=== PATIENT | female | born 1950 | race Caucasian/White ===

== ENCOUNTER 2024-06-01 08:37 | Outpatient (OUT) | payer MEDICARE, SELFPAY ==
--- NOTE | 2024-06-01 08:41 | XR_ITS ---
[address] [address] Patient Name: ELLA NIXON MRN: [id number] date: 1950 Sex: F Assigned Patient Location: [facility] Current Patient Location: [facility] Accession/Order Number: [id number] Exam Date: 06/01/2024 09:00 Report Date: 06/01/2024 10:19 At the request of: ANUPAMA VILLA Procedure: XR DEXA axial skeleton EXAMINATION: XR DEXA axial skeleton HISTORY: Primary Ovarian Failure E28.39 COMPARISON: DEXA bone densitometry 04/01/2022 TECHNIQUE: Dual-energy X-ray absorptiometry (DXA) was performed. FINDINGS: SPINE ANALYSIS: Average bone mineral density is 1.215 g/cm2. T-score (standard deviation relative to young adult mean): 0.4 . -1.0% change since prior study. HIP ANALYSIS: Lowest bone mineral density is within the left femoral neck, 0.697 g/cm2. T-score (standard deviation relative to young adult mean): -2.5 . XR/XR DEXA axial skeleton IMPRESSION: World Health Organization Classification: Osteopenia - Moderate Fracture Risk FRAX: Cannot calculate. Pharmacologic treatment recommendations * No uniform recommendation applies to all patients. Management plans must be individualized. * Consider initiating pharmacologic treatment in postmenopausal women and men >= 50 years of age who have the following: Primary fracture prevention: * T-score <= - 2.5 at the femoral neck, total hip, lumbar spine, 33% radius (some uncertainty with existing data) by DXA. * Low bone mass (osteopenia: T-score between - 1.0 and - 2.5) at the femoral neck or total hip by DXA with a 10-year hip fracture risk >= 3% or a 10-year major osteoporosis-related fracture risk >= 20% (i.e., clinical vertebral, hip, forearm, or proximal humerus) based on the [place]-adapted FRAXregistered model. Secondary fracture prevention: * Fracture of the hip or vertebra regardless of BMD [4, 5]. * Fracture of proximal humerus, pelvis, or distal forearm in persons with low bone mass (osteopenia: T-score between - 1.0 and - 2.5). The decision to treat should be individualized in persons with a fracture of the proximal humerus, pelvis, or distal forearm who do not have osteopenia or low BMD [12, 13]. Sadiq MS, Esperanza SL, Gaye KL, Harriet EM, Monico KG, AJ, Slime ES. The clinician's guide to prevention and treatment of osteoporosis. Osteoporos Int. 2021;33(10):3513-6129. doi: 10.1007/z83271-465-63509-p. Epub 2021Mar 07. Erratum in: Osteoporos Int. 2021Jun 06;: PMID: [id number]; PMCID: [id number]. Electronically authenticated by: CLAIRE ACEVEDO Date: 06/01/2024 10:19
--- NOTE | 2024-06-01 08:41 | MM_ITS ---
Patient Name: ELLA NIXON MR#: [id number] : 1950 Exam Date: 06/01/2024 Ordering Doctor: DR ANUPAMA VILLA M.D. RADIOLOGY REPORT PROCEDURE: MM TOMOSYNTHESIS SCREENING BI COMPARISON: MG MAMM SCREEN 3D KILEY CAD, 04/01/2022. MG MAMM SCREEN KILEY W CAD, 12/09/2019. MG MAMM SCREEN KILEY W CAD, 05/28/2017. MG MAMM KILEY SCRN W CAD DIG, 03/03/2014. INDICATIONS: Screening Calculator Name NCI Breast Cancer Risk Assessment Tool 5 Year Breast Cancer Risk 3.30% Lifetime Breast Cancer Risk 7.00% Personal Breast Cancer No Personal Ovarian Cancer No Treatments None Family Cancers Sister with breast cancer at age 61. LOCATION: [facility] BREAST COMPOSITION: There are scattered areas of fibroglandular density. FINDINGS: DIAGNOSTIC CATEGORY 2--BENIGN FINDING: RIGHT BREAST: No significant suspicious finding. Scattered benign-appearing calcifications are present. No significant change has occurred. LEFT BREAST: No significant suspicious finding. Scattered benign-appearing calcifications are present. No significant change has occurred. RECOMMENDATIONS: ROUTINE MAMMOGRAM AND CLINICAL EVALUATION IN 12 MONTHS. PLEASE NOTE: A NORMAL MAMMOGRAM DOES NOT EXCLUDE THE POSSIBILITY OF BREAST CANCER. A CLINICALLY SUSPICIOUS PALPABLE LUMP SHOULD BE BIOPSIED. Dictated by: Josh Clemons M.D. on 06/01/2024 at 11:35 Approved by: Josh Clemons M.D. on 06/01/2024 at 11:39
== END 2024-06-01 08:38 | disposition home or self-care (01) ==
LOC: MAMMO 08:37
PROVIDERS: PCP Internal Medicine; Visit Provider Internal Medicine
DX: E28.39 Other primary ovarian failure (principal); Z12.31 Encounter for screening mammogram for malignant neoplasm of breast; Z80.3 Family history of malignant neoplasm of breast; M85.80 Other specified disorders of bone density and structure, unspecified site
CPT/HCPCS: 77063; 77067; 77080